=== PATIENT | male | born 1985 | race Caucasian/White ===

== ENCOUNTER 2023-09-14 05:30 | Emergency (ER) | payer MEDICAID ==
[~2023-09-14] VITALS: Ht 177.8 cm; Wt 82.0 kg
[2023-09-14 05:56] VITALS: BP 136/87; PULSE 89; RESP 17; TEMP 98.8; O2SAT 99
== END 2023-09-14 07:49 ==
LOC: ER 05:30
DX: R68.89 Other general symptoms and signs (principal); E11.9 Type 2 diabetes mellitus without complications
CPT/HCPCS: 82962; 99283